=== PATIENT | male | born 1960 | race Caucasian/White ===

== ENCOUNTER 2016-07-08 15:00 | Outpatient (RCR) | payer OTHER ==
[~2016-07-08 15:00] MED LIST: ABILIFY2 MG ORAL; AMBIEN10 MG PO; AMBIEN5 MG ORAL; CYCLOBENZAPRINE10 MG PO; FINACEA50 GM TP; FLONASE16 GM NS; IMMODIUM PO; KLONOPIN1 MG ORAL; KLONOPIN1 MG PO; LITHIUM CARBON300 MG ORAL; METROGEL 1% KI1 EACH TP; PRILOSEC20 MG ORAL; PRISTIQ ER100 MG PO; PRISTIQ50 MG PO; QUETIAPINE FUMA25 MG ORAL; RISPERDAL0.25 MG PO; SEROQUEL25 MG ORAL; VIIBRYD40 MG PO
== END 2016-08-05 | disposition home or self-care (01) ==
LOC: PTY 15:00
DX: M89.8X8 Other specified disorders of bone, other site (principal); I10 Essential (primary) hypertension; Z86.59 Personal history of other mental and behavioral disorders; Z87.19 Personal history of other diseases of the digestive system

== ENCOUNTER 2016-07-09 08:01 | Outpatient (RCR) | payer OTHER ==
[~2016-07-09] VITALS: Ht 33 cm; Wt 0.5 kg
[2016-07-16] MEDS ORDERED: Succinylcholine 20mg/ml 10ml vial ONE (08:00)
[2016-07-16] MEDS ORDERED: NS 550ML IV ONE (08:00)
[2016-07-16] MEDS ORDERED: Ketorolac 60mg Inj ONE (08:00)
[2016-07-16] MEDS ORDERED: Midazolam 2mg/2ml Inj ONE (08:00)
[2016-07-16] MEDS ORDERED: Methohexital Sodium Syr 100mg/10ml IVP ONE (08:00)
[2016-07-16] MEDS ORDERED: Atropine Sulfate 0.4mg/ml inj IVP PRN (09:45)
== END 2016-08-05 | disposition home or self-care (01) ==
LOC: ECT 08:01
DX: F33.2 Major depressive disorder, recurrent severe without psychotic features (principal); F41.0 Panic disorder [episodic paroxysmal anxiety]
CPT/HCPCS: 90870; J0330; J2250; J7040

== ENCOUNTER 2016-08-13 05:10 | Outpatient (RCR) | payer OTHER ==
[~2016-08-13] VITALS: Ht 30.5 cm; Wt 0.5 kg
[2016-08-13] MEDS ORDERED: Midazolam 2mg/2ml Inj ONE (05:11)
[2016-08-13] MEDS ORDERED: NS 550ML IV ONE (05:11)
[2016-08-13] MEDS ORDERED: Methohexital Sodium Syr 100mg/10ml IVP ONE (05:11)
[2016-08-13] MEDS ORDERED: Succinylcholine 20mg/ml 10ml vial ONE (05:11)
[2016-08-13] MEDS ORDERED: Ketorolac 60mg Inj ONE (05:11)
== END 2016-09-02 | disposition home or self-care (01) ==
LOC: PTY 05:10
DX: M89.8X8 Other specified disorders of bone, other site (principal); I10 Essential (primary) hypertension; Z86.59 Personal history of other mental and behavioral disorders
CPT/HCPCS: 90870; J0330; J2250; J7040

== ENCOUNTER 2016-09-10 07:18 | Outpatient (RCR) | payer OTHER ==
[~2016-09-10] VITALS: Ht 198.1 cm; Wt 104.3 kg
[2016-09-10] MEDS ORDERED: Succinylcholine 20mg/ml 10ml vial ONE (07:19)
[2016-09-10] MEDS ORDERED: Midazolam 2mg/2ml Inj ONE (07:19)
[2016-09-10] MEDS ORDERED: Methohexital Sodium Syr 100mg/10ml IVP ONE (07:19)
[2016-09-10] MEDS ORDERED: Ketorolac 60mg Inj ONE (07:19)
[2016-09-10] MEDS ORDERED: NS 550ML IV ONE (07:19)
[2016-09-10] MEDS ORDERED: Atropine Sulfate 0.4mg/ml inj IVP PRN ×2 (17:30)
[2016-09-10] MEDS ORDERED: Excedrin Migraine tab ORAL PRN (17:30)
== END 2016-10-03 | disposition home or self-care (01) ==
LOC: ECT 07:18
DX: F33.2 Major depressive disorder, recurrent severe without psychotic features (principal); Z91.048 Other nonmedicinal substance allergy status
CPT/HCPCS: 90870; J0330; J2250; J7040

== ENCOUNTER 2016-10-06 12:32 | Outpatient (RCR) | payer OTHER ==
[~2016-10-06] VITALS: Ht 198.1 cm; Wt 104.3 kg
[2016-10-06] MEDS ORDERED: Ketorolac 60mg Inj ONE ×2 (12:33)
[2016-10-06] MEDS ORDERED: Succinylcholine 20mg/ml 10ml vial ONE ×2 (12:33)
[2016-10-06] MEDS ORDERED: Midazolam 2mg/2ml Inj ONE ×2 (12:33)
[2016-10-06] MEDS ORDERED: Methohexital Sodium Syr 100mg/10ml IVP ONE (12:33)
[2016-10-06] MEDS ORDERED: Methohexital Sodium 500mg Vial IVP ONE (12:33)
[2016-10-06] MEDS ORDERED: NS 550ML IV ONE ×2 (12:33)
[2016-10-27] MEDS ORDERED: NS 550ML IV ONE (04:00)
[2016-10-27] MEDS ORDERED: Midazolam 2mg/2ml Inj ONE (04:00)
[2016-10-27] MEDS ORDERED: Succinylcholine 20mg/ml 10ml vial ONE (04:00)
[2016-10-27] MEDS ORDERED: Ketorolac 60mg Inj ONE (04:00)
[2016-10-27] MEDS ORDERED: Atropine Sulfate 0.4mg/ml inj IVP PRN (10:13)
== END 2016-11-02 | disposition home or self-care (01) ==
LOC: ECT 12:32
DX: F33.2 Major depressive disorder, recurrent severe without psychotic features (principal)
CPT/HCPCS: 90870; J0330; J2250; J7040; J3490

== ENCOUNTER 2016-11-17 06:28 | Outpatient (RCR) | payer OTHER | END 2016-12-03 | disposition home or self-care (01) | LOC: ECT 06:28 | DX: M89.8X8 Other specified disorders of bone, other site (principal); F33.2 Major depressive disorder, recurrent severe without psychotic features; I10 Essential (primary) hypertension ==

== ENCOUNTER 2017-01-07 06:06 | Outpatient (RCR) | payer OTHER ==
[~2017-01-07] VITALS: Ht 198.1 cm; Wt 104.3 kg
[2017-01-07] MEDS ORDERED: Methohexital Sodium Syr 100mg/10ml IVP ONE (06:07)
[2017-01-07] MEDS ORDERED: Midazolam 2mg/2ml Inj ONE (06:07)
[2017-01-07] MEDS ORDERED: Succinylcholine 20mg/ml 10ml vial ONE (06:07)
[2017-01-07] MEDS ORDERED: Ketorolac 60mg Inj ONE (06:07)
[2017-01-07] MEDS ORDERED: NS 550ML IV ONE (06:07)
[2017-01-21] MEDS ORDERED: Succinylcholine 20mg/ml 10ml vial ONE (07:00)
[2017-01-21] MEDS ORDERED: Midazolam 2mg/2ml Inj ONE (07:00)
[2017-01-21] MEDS ORDERED: Methohexital Sodium Syr 100mg/10ml IVP ONE (07:00)
[2017-01-21] MEDS ORDERED: Ketorolac 60mg Inj ONE (07:00)
[2017-01-21] MEDS ORDERED: NS 550ML IV ONE (07:00)
== END 2017-02-02 | disposition home or self-care (01) ==
LOC: ECT 06:06
DX: M89.8X8 Other specified disorders of bone, other site (principal); F33.2 Major depressive disorder, recurrent severe without psychotic features; I10 Essential (primary) hypertension; F41.9 Anxiety disorder, unspecified; F41.0 Panic disorder [episodic paroxysmal anxiety]
CPT/HCPCS: 90870; J0330; J2250; J7040

== ENCOUNTER 2017-02-04 05:02 | Outpatient (RCR) | payer OTHER | END 2017-03-05 | disposition home or self-care (01) | LOC: ECT 05:02 | DX: M89.8X8 Other specified disorders of bone, other site (principal); F33.2 Major depressive disorder, recurrent severe without psychotic features; I10 Essential (primary) hypertension; F41.9 Anxiety disorder, unspecified; F41.0 Panic disorder [episodic paroxysmal anxiety] ==

== ENCOUNTER 2017-03-18 05:10 | Outpatient (RCR) | payer OTHER | END 2017-04-04 | disposition home or self-care (01) | LOC: ECT 05:10 | DX: Z53.9 Procedure and treatment not carried out, unspecified reason (principal) ==

== ENCOUNTER 2017-08-20 15:00 | Outpatient (RCR) | payer OTHER | END 2017-09-02 | disposition home or self-care (01) | LOC: PTY 15:00 | DX: M54.2 Cervicalgia (principal); G89.29 Other chronic pain; M25.619 Stiffness of unspecified shoulder, not elsewhere classified ==

== ENCOUNTER 2017-09-07 15:22 | Outpatient (RCR) | payer OTHER | END 2017-10-03 | disposition home or self-care (01) | LOC: PTY 15:22 | DX: M54.2 Cervicalgia (principal); G89.29 Other chronic pain; M25.619 Stiffness of unspecified shoulder, not elsewhere classified; I10 Essential (primary) hypertension; M19.90 Unspecified osteoarthritis, unspecified site; F41.9 Anxiety disorder, unspecified ==

== ENCOUNTER 2017-10-07 16:00 | Outpatient (RCR) | payer OTHER | END 2017-11-02 | disposition home or self-care (01) | LOC: PTY 16:00 | DX: M54.2 Cervicalgia (principal); G89.29 Other chronic pain; M25.619 Stiffness of unspecified shoulder, not elsewhere classified; I10 Essential (primary) hypertension; M19.90 Unspecified osteoarthritis, unspecified site; F41.9 Anxiety disorder, unspecified ==

== ENCOUNTER 2017-12-14 14:20 | Outpatient (RCR) | payer OTHER | END 2018-01-02 | disposition home or self-care (01) | LOC: PTY 14:20 | DX: M54.2 Cervicalgia (principal); G89.29 Other chronic pain ==